=== PATIENT | female | born 1975 | race African-American/Black ===

== ENCOUNTER 2021-06-29 07:35 | Emergency (ER) | payer OTHER ==
[~2021-06-29] VITALS: Ht 167.6 cm; Wt 122.0 kg
[2021-06-29 09:58] LABS: BASOPHILS % 0.6 % (0.0-2.0); EOSINOPHILS % 1.6 % (0.0-5.0); HEMATOCRIT. 37.5 % (36.0-48.0); HEMOGLOBIN. 12.2 g/dL (12.0-16.0); LYMPHOCYTES % 34.9 % (20.0-50.0); MEAN CORPUSCULAR HEMOGLOBIN 29.7 pg (28.0-32.0); MEAN CORPUSCULAR VOLUME 91.2 fL (81.0-99.0); MEAN PLATELET VOLUME 8.6 fl (7.4-10.4); MONOCYTES % 5.7 % (2.0-8.0); NEUTROPHILS % 57.2 % (40.0-76.0); PLATELET 252 x1000/uL (130-400); RED BLOOD CELL COUNT 4.11 mill/uL (4.2-5.4)
[2021-06-29 10:08] LABS: CHLORIDE 107 mEq/L (98-107)
[2021-06-29 10:17] LABS: HCG SCREEN NEGATIVE
[2021-06-29 10:21] VITALS: BP 137/87
== END 2021-06-29 11:10 | disposition home or self-care (01) ==
LOC: ER 07:35
DX: R07.89 Other chest pain (principal); M79.662 Pain in left lower leg; Z98.890 Other specified postprocedural states; Z90.49 Acquired absence of other specified parts of digestive tract; Z98.51 Tubal ligation status
CPT/HCPCS: 36415; 71045; 80053; 84484; 84703; 85025; 93005; 93971; 99285; Z7610